=== PATIENT | female | born 1965 | race Caucasian/White ===

== ENCOUNTER 2016-06-17 05:34 | Day surgery (SDC) | payer OTHER ==
[~2016-06-17] VITALS: Ht 160 cm; Wt 85.3 kg
[2016-06-17] VITALS (15 sets, daily range): BP systolic 95–128; BP diastolic 50–80; PULSE 72–91; RESP 5–17; O2SAT 94–100
[~2016-06-17 05:34] MED LIST: BISA10EN RC; BUDE8.435 NS; CETI10CA PO; CHOL500011 PO; CLON2TAB PO; FIBERCON PO; GABA-502 PO; HYDR25TA4 PO; LIDO5O TP; Lactated Ringer's 1,000 ML IV SCH; MAGN400C PO; NICO2LOZ PO; NYST1POW23 MC; OMEP20CA11 PO; PRE20 PO; PROP20TA5 PO; QUET200T58 PO; RANI150C4 PO; ROPI1TAB3 PO; TOPI50TA32 PO
[2016-06-17] MEDS ORDERED: MetoCLOpramide 5 mg/mL 2 mL Inj ONE (05:35)
[2016-06-17] MEDS ORDERED: Ketamine 10 mg/mL 20 mL Inj ONE (05:35)
[2016-06-17] MEDS ORDERED: Dexamethasone 4 mg/mL Inj ONE (05:35)
[2016-06-17] MEDS ORDERED: Rocuronium 10 mg/mL 5 mL Inj ONE (05:35)
[2016-06-17] MEDS ORDERED: Propofol 10,000 mCg/mL 20 mL Inj ONE (05:35)
[2016-06-17] MEDS ORDERED: HYDROmorphone 2 mg/mL Inj ONE (05:35)
[2016-06-17] MEDS ORDERED: Ondansetron 2 mg/mL 2 mL Inj ONE (05:35)
[2016-06-17] MEDS ORDERED: Clindamycin Inj 900 MG in IV Premix 1 EACH IV SCH (06:00)
[2016-06-17] MEDS ORDERED: Lactated Ringer's 1,000 ML IV ONE (06:05)
--- NOTE | 2016-06-17 07:24 | PCM.HPANE ---
Patient Data Surgeon Admitting Provider: Attending Provider:Will Henson MD Primary Care Physician:Jarad Ann MD Other Provider:[facility] Reason for Visit Abdominal Pannus, Excess Abdominal Skin Ht/WT & BMI Height (Feet): 5 Height (Inches): 3.00 Weight (Kilograms): 85.275 Body Mass Index 33.00 Allergies Coded Allergies: Penicillins (Verified Allergy, Severe, Rash,Itching,, 06/16/16) TAPE (Verified Allergy, Severe, blisters, 06/16/16) ciprofloxacin (Verified Allergy, Unknown, UNKNOWN, 06/16/16) Past Anesthesia History Anesthesia History: Denies:: Abnormal Airway, Anesthesia Reactions, Difficult Intubation, Fam Anesthesia Reaction, Fam Malignant Hypertherm, Malignant Hyperthermia Diabetes History Hx Diabetes?: No Type of Diabetes: Type II Glycemic Control: Diet Controlled Current Bedside Blood Glucose: 93 MRSA MRSA: No Medications Home Meds Incl Beta Perla: No Reported Medications Topiramate (Topamax)50 Mg Mvluoj15 Mg PO BID Ref 0 06/16/16 Lidocaine HCl (Lidocaine)142 Appl/37.5 Gm Oint1 Appl TP Q8H PRN PRN 5% 06/16/16 Hydrochlorothiazide 25 Mg Vmklgl08 Mg PO DAILY 30 Days Ref 0 06/16/16 [Fibercon] No Conflict Bbdmy418 Mg PO BID 06/16/16 Budesonide 32 Mcg/Actuation [place].pump8.43 Ml NS EVERY 2 DAYS 06/16/16 Bisacodyl (Bisacodyl Rectal)10 Mg/30 Ml Enema10 Mg RC PRN PRN For Constipation 06/16/16 Cetirizine HCl (Zyrtec)10 Mg Gcqedzc36 Mg PO HS #30 CAPSULE Ref 0 11/20/15 Quetiapine Fumarate 200 Mg Dojqpt233 Mg PO HS Ref 0 07/03/15 Omeprazole 20 Mg Capsule.dr40 Mg PO HS Ref 0 07/03/15 Ranitidine 150 Mg Nmrqbor823 Mg PO BID Ref 0 07/03/15 Gabapentin 300 Mg Wyfubws216 Mg PO TID Ref 0 07/03/15 Clonazepam (Klonopin)2 Mg Tablet2 Mg PO HS PRN For Anxiety Ref 0 05/15/15 Ropinirole 1 Mg Tablet1 Mg PO HS Ref 0 05/14/15 Magnesium Oxide (Magnesium)400 Mg Lagxskz135 Mg PO HS 03/24/14 Discontinued Reported Medications Propranolol HCl 20 Mg Pfpjgh62 Mg PO TID 90 Days Ref 0 06/16/16 Prednisone (PredniSONE)20 Mg Bjciiq01 Mg PO DAILY Ref 0 TAPERING DOSES 06/16/16 Nystatin 1 Each Powder.ea.1 Each MC BID 06/16/16 Nicotine Polacrilex (Nicotine Lozenge)2 Mg Lozenge2 Mg PO Q2H PRN For Tobacco Withdrawal Ref 0 06/16/16 Cholecalciferol (Vitamin D3) (Vitamin D3)5,000 Unit Onajym272 Unit PO DAILY 07/23/14 Metformin 500 Mg Ffeucf006 Mg PO BID Ref 0 11/20/15 Cyclobenzaprine 10 Mg Cjacor70 Mg PO HS PRN For Pain 03/24/14 History History of ENT Problems?: Yes HEENT History: Positive for:: Dysphagia Hearing Problem Sinus Problem (SINUSITIS) Denies:: Abnormal Airway Cataracts Difficult Intubation Hx of Heart Problems?: Yes Cardiovascular History: Positive for:: Edema (Bilateral lower extremities) Denies:: AICD Atrial Fibrillation Cardiac Surgery Chest Pain Congestive Heart Failure Heart Murmur Hypertension (HYPERLIPIDEMIA) Pacemaker Valvular Heart Disease Hx of Respiratory Problem?: Yes Respiratory History: Positive for:: Asthma Dyspnea (MAK) Pneumonia (HX OF) Denies:: COPD Cough Hemoptysis Oxygen Administration Tuberculosis Use of C-PAP Machine Use of Inhalers / NEBS (NASAL SPRAYS FOR ALLERGIES) Hx Neurologic Problems?: Yes Neurological History: Positive for:: Headaches Denies:: Alzheimer's Disease CVA (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) Dementia Dizziness Seizures Other Neurological Pertinent: C/OF PARESTHESIAS HX OF CONCUSSION W/O LOC HX OF ENCEPHALOPATHY FOLLOWING OD'S Hx of GI Problems?: Yes Gastrointestinal History: Positive for:: Gall Bladder Disease (S/P KALPANA) Gastroesphageal Reflux Heartburn Denies:: Cirrhosis Diverticulitis Gastrointestinal Bleeding Hepatitis Hiatal Hernia Rectal Bleeding Other GI Pertinent History: S/P DELVIN-N-Y GASTRIC BYPASS (180# WEIGHT LOSS OVER SEVERAL YEARS) ABD PANNUS,EXCESS ABD SKIN=CURRENT PROBLEM Hx of Problems?: No Genitourinary History: Denies:: Kidney Stones Female Hx: Denies:: Currently Endometriosis Pelvic Inflammatory Problems with Breasts? Skin History: Positive for:: History Skin Disorders? (RASHES, SKIN IRRITATION UNDER PANNUS) Denies:: Pressure Ulcers Hx Musculoskeletal Problems?: Yes Musculoskeletal History: Positive for:: Musculoskeletal Trauma (C/OF RT KNEE PAIN) Denies:: Back Injury (C/OF CHRONIC BACK PAIN) Joint Replacement Hx of Psycho/Social Problems?: Yes Psycho Social History: Positive for:: Anxiety Bipolar Disorder Hx Depression Suicide Attempt (MULT OD'S/SUICIDE ATTEMPTS (REQ INTUBATION 2013,2016)) Hx Surgeries?: Yes (DELVIN-N-Y GASTRIC BYPASS,KALPANA,HYST,BTL) Hx Any Other Health Problems?: Yes Other History: Positive for:: Cancer (Cervical Cancer) Endocrine Disease Hospitalization (OD) Thyroid Disease History Blood Transfusions: Denies:: Blood Transfuse Reaction Blood Transfusions Hx Diabetes: NoBedside Blood Glucose: 93 Hx Alcohol Use: YesAlcoholic Drinks Per Day: ADMITS TO 1/2 WEEK; HX OF BINGE DRINKINGHx Substance Use: Yes (THC) Smoking Status: Current Every Day Smoker Have You Smoked inLast 12 mo: Yes (USING E-CIG & NICOTINE LOZENGES) Stop/Bang Treated for Sleep Apnea?: No Do You Have a CPAP Machine?: No S-Snoring: Do You Snore Loudly: No T-Tired: feel tired, fatigued: Yes O-Obsered: Observed not breath: No P-Blood Pressure: treated: Yes B- Body Mass Index > 35 kg/m2: No A- Age over 50: Yes N- Neck Large Circumference: No G- Gender Male: No ELLIE Total Score: 3 ELLIE Risk Assessment: Low Risk, <3 Yes Risk Assessment Category Category 1A: Patient has history of documented sleep apnea, and HAS NOT received any narcotic, sedative or anesthesia administration during this stay. Category 1B: Patient has history of documented sleep apnea, and HAS received any narcotic , sedative or anesthesia administration during this stay Category 2: Patient has SUSPECTED Obstructive Sleep Apnea, and HAS received any narcotic , sedative or anesthesia administration during this stay. Category 3: Patient has SUSPECTED Obstructive Sleep Apnea and HAS NOT received narcotic, sedative or anesthesia administration during this stay. Category 4: Outpatient in Procedural Areas with known sleep apnea or who screen positive for High Risk via the STOP/BANG questionnaire. Exam Exam Vital Signs Vital Signs Date Time Temp Pulse Resp B/P Pulse Ox O2 Delivery O2 Flow Rate FiO2 4// 06:06 36.3 74 17 109/68 97 Room Air General Appearance: Oriented X3 HEENT/AIRWAY: MP 2 Lungs: Normal Air Movement Heart: Regular Rate/Rhythm Meds/Labs/Diagnostics Admission Meds Current Medications Lactated Ringer's (Lr) 1,000 ml @ ud STK-MED ONCE IV Last administered on t 06:05; Start 06/17/16 at 06:05; Stop 06/17/16 at 06:06; Status DC Bedside Blood Glucose: 93 Plan Impression Patient chart reviewed, patient interviewed and anesthestic plan with risks, benefits, and alternatives discussed, and informed consent obtained. NPO Status: 06/16@1999, WATER @ 0330 ASA Physical Status: ASA2 Mod Systemic Disease Anesthetic Plan: GA Bene/Risks/Altern/Consents: Yes HP Complete Prior to Induction: Yes Jason Good MD Jun 17, 2016 07:24
[2016-06-17] MEDS ORDERED: Lactated Ringer's 1,000 ML IV SCH (07:56)
[2016-06-17] MEDS ORDERED: Lactated Ringer's 500 ML IV PRN (07:56)
[2016-06-17] MEDS ORDERED: fentaNYL-PF 50 mCg/mL 2 mL Inj IVPUSH PRN (08:00)
[2016-06-17] MEDS ORDERED: Phenylephrine 10,000 mCg/mL Inj IVPUSH PRN (08:00)
[2016-06-17] MEDS ORDERED: EPHEDrine Sulfate 50 mg/mL Inj IVPUSH PRN (08:00)
[2016-06-17] MEDS ORDERED: MetoCLOpramide 5 mg/mL 2 mL Inj IVPUSH PRN (08:00)
[2016-06-17] MEDS ORDERED: Labetalol 5 mg/mL 4 mL Inj IV PRN (08:00)
[2016-06-17] MEDS ORDERED: Ondansetron 2 mg/mL 2 mL Inj IVPUSH PRN (08:00)
[2016-06-17] MEDS ORDERED: HYDROmorphone 1 mg/mL Inj IVPUSH PRN (08:00)
[2016-06-17] MEDS ORDERED: Dexamethasone 4 mg/mL Inj IVPUSH PRN (08:00)
[2016-06-17] MEDS: oxyCODONE-Acetamin 5-325 mg Tablet PO PRN ×2 (12:00→12:35)
--- NOTE | 2016-06-17 12:31 | PCM.ANEP1 ---
Post Anesthesia Phase 1 PACU Phase 1 Assessment Vital Signs Vital Signs Date Time Temp Pulse Resp B/P Pulse Ox O2 Delivery O2 Flow Rate FiO2 06/17/16 11:45 36.1 91 13 119/71 100 Nasal Cannula 3 06/17/16 11:32 82 12 108/62 99 Nasal Cannula 3 06/17/16 11:28 87 9 110/77 97 Nasal Cannula 3 06/17/16 11:22 85 5 128/78 94 Room Air 06/17/16 11:19 86 14 116/80 100 Simple Mask 10 06/17/16 11:10 72 5 101/70 100 Simple Mask 10 06/17/16 11:04 77 5 103/69 100 Simple Mask 10 06/17/16 11:01 78 5 102/69 100 Simple Mask 10 06/17/16 10:54 77 5 107/65 99 Simple Mask 10 06/17/16 10:50 79 5 98/64 99 Simple Mask 10 06/17/16 10:45 80 5 98/59 99 Simple Mask 10 06/17/16 10:41 36.2 77 5 95/50 99 Simple Mask 10 06/17/16 06:06 36.3 74 17 109/68 97 Room Air Anesthetic Administered: GA Level of Alertness: Awake, talking Pain: No Nausea or Vomiting: No Airway Device: Oralpharangeal Airway Lungs: Normal Air Movement Jason Good MD Jun 17, 2016 12:31
--- NOTE | 2016-06-17 12:31 | PCM.ANEP2 ---
Post Anesthesia Evaluation ASA/CMS Post Anesthesia VS in Patient's Normal Range?: Yes Resp Stable; Airway Patent?: Yes CV Function & Hydration Stable: Yes Mental Status Recovered?: Yes Pain control Satisfactory?: Yes N/V Control Satisfactory?: Yes Jason Good MD Jun 17, 2016 12:31
--- NOTE | 2016-06-19 14:20 | OP ---
[address] [address] OPERATIVE REPORT PATIENT: SAMSON PANIAGUA : 1965 MR#: [id number] ADMIT: 06/17/2016 JOB ID: [id number] DATE OF SURGERY: 06/17/2016 PREOPERATIVE DIAGNOSIS(ES): 1. Abdominal pannus. 2. Excess abdominal skin. POSTOPERATIVE DIAGNOSIS(ES): 1. Abdominal pannus. 2. Excess abdominal skin. PROCEDURE: 1. Abdominal panniculectomy. 2. Excision of excess abdominal skin using a vertical [id number]-[id number] method. SURGEON: Will Henson MD. CERTIFIED MASSAGE THERAPIST: LANDON, Reyes Salcedo, was present for necessary retraction, exposure, and closure of the incisions. ANESTHESIA: General anesthesia. ESTIMATED BLOOD LOSS: 40 cc. COMPLICATIONS: None apparent. SPECIMEN: Abdominal pannus and excess abdominal tissue to Pathology. INDICATIONS FOR PROCEDURE: This is a 51-year-old, female patient with a history of massive weight loss. The patient has a resultant abdominal pannus that is quite symptomatic with an intertriginous rash and skin breakdown. Patient has been approved for panniculectomy. The patient also would like to have her excess periumbilical and supraumbilical excess skin removed. Patient has to pay for this out of pocket at this point, but two procedures are indicated. PROCEDURES AND FINDINGS: The patient was identified in the preoperative area and surgical site was marked. With the patient in a standing position, I marked the superior and inferior border of her undergarment. Patient's midline was also marked. The patient was then taken back to the operating room and placed supine on the operating table. Appropriate time-outs were taken. General anesthesia was induced smoothly. With the patient supine I marked on the patient's abdomen several grid lines 5 cm apart to better assess the amount of skin excised. A low transverse abdominal incision was also designed to have the incision lie underneath patient's undergarment superior borders. The patient was then prepped and draped in the usual sterile manner. A low transverse abdominal incision was then made with a #10 blade. I then deepened the incision down through the subcutaneous tissue, down to the underlying abdominal fascia. I then elevated the skin flap off of the rectus fascia to the level of the umbilicus. At this point, incision was carried around the umbilicus. The umbilical stalk was then dissected down to the abdominal fascia with approximately 1-2 cm of fatty tissue surrounding the stalk. Once this has been done, I made the vertical incision from just superior to the xiphoid all the way down through the flap. The vertical incision was then carried down to the abdominal fascia in the supraumbilical region. At this point, excess horizontal abdominal skin was estimated with the pinch test. Care was taken to remove similar amount on each side. The excess skin was marked from the superior end of the vertical incision down to the level of the umbilicus. At the level of the umbilicus approximately 30 cm of excess skin was marked for removal. Incision was then made along the bryan. Incision was then made with a #10 blade and carried down to the underlying abdominal fascia with electrocautery. The excess supraumbilical abdominal tissue was then elevated off the abdominal fascia. This was then trimmed and passed off to Pathology as a specimen. At this point, the vertical incision was then temporarily reapproximated with skin mane down to the level of the umbilicus. Once this has been done, the skin flap was retracted medially and inferiorly. Excess abdominal skin in the vertical dimension was then marked. Once the bryan has been made incision was made with a #10 blade down through the skin and through the skin flap by allowing the excess abdominal tissue and pannus to be removed from the vertical dimension. Once this has been done, mane were temporarily removed. Hemostasis was obtained with electrocautery. I then plicated rectus back to the midline using a looped 0 PDS suture reapproximating the rectus fascia at the edge of the rectus abdominis muscle from the xiphoid down to the umbilicus. Another suture was then used to plicate the rectus fascia from the pubic symphysis up to the umbilicus. A vertical drain and then transverse drain were then placed into the surgical site. The vertical drain exited through a separate inferior stab incision in the pubis. Transverse drain exited through a separate lateral stab incision on the right side. The drains were secured with 3-0 nylon drain stitches. The incisions were then reapproximated first with a layer of 3-0 Vicryl dsdoly-[id number] sutures reapproximating Deana's fascia. A layer of 3-0 Monocryl deep dermal sutures was then placed. At the level of the umbilicus, the umbilicus was inset using 4-0 Monocryl deep dermal sutures. A layer of 4-0 Monocryl running subcuticular sutures were then placed for final epidermal reapproximation. The patient tolerated the procedure well. Needle count, sponge count, instrument counts were correct at the end of the procedure. The patient was extubated and transported to recovery in a stable condition.
--- NOTE | 2016-06-22 13:06 | PATH ---
SURGICAL PATHOLOGY Attending Physician:Will Henson CASE STATUS: Signed Out PATIENT NAME: SAMSON PANIAGUA PID: [id number] : 1965 DATE COLLECTED:06/17/2016 22:58 SPECIMEN: 1: Skin, biopsy 2: Skin, biopsy CLINICAL HISTORY: EXCESS ABDOMINAL TISSUE, ABDOMINAL PANNIS 1). EXCESS ABDOMINAL TISSUE 2). MORE, ABDOMINAL TISSUE FINAL DIAGNOSIS: 1. Excess Abdominal Tissue: Skin and adipose tissue (1246 grams) consistent with abdominal pannus. 2. More Abdominal Tissue: Adipose tissue (1456.6 grams) consistent with abdominal pannus. ICD10 E65 GROSS DESCRIPTION: The specimens are received in formalin, labeled with the patient's name, and sublabeled as the following: (1) excess abdominal skin; (2) more-excess abdominal tissue. (1) The specimen consists of multiple pieces of adipose tissue with overlying skin (1246 g, 26.2 x 25.5 x 3.8 cm). The adipose tissue is sung-yellow lobular and homogenous. The skin is pale white and unremarkable. Section code: (1A, 1B) tissue, termite control representative. (2) The specimen consists of multiple pieces of adipose tissue with overlying skin (1456 6 g, 28.8 x 26.7 x 5.2 cm). The adipose tissue is sung-yellow lobular and homogenous. The skin is pale white and unremarkable. Section code: (2A, 2B) tissue, termite control representative. 06/18/16 ICD-9 CODES: CPT CODES: 1: 60913 2: 28884 Electronically Signed Out Jarred Cohen MD [facility] [address], [place] [address] Technical component performed at [facility], [facility] [address], [place], [address]
== END 2016-06-17 23:59 | disposition home or self-care (01) ==
LOC: SAS 05:34
PROVIDERS: ATTEND Plastic Surgery
DX: E65 Localized adiposity (principal); L98.7 Excessive and redundant skin and subcutaneous tissue; Z98.84 Bariatric surgery status; E11.9 Type 2 diabetes mellitus without complications; F31.9 Bipolar disorder, unspecified; Z72.0 Tobacco use

== ENCOUNTER 2016-11-25 19:38 | Emergency (ER) | payer OTHER ==
[~2016-11-25] VITALS: Ht 161.3 cm; Wt 81.8 kg
[~2016-11-25 19:38] MED LIST changes: -Clindamycin 900 mg/50 mL D5W Premix IV ONE; -Dexamethasone 4 mg/mL Inj IVPUSH PRN; -Dexamethasone 4 mg/mL Inj ONE; -EPHEDrine Sulfate 50 mg/mL Inj IVPUSH PRN; -HYDROmorphone 1 mg/mL Inj IVPUSH PRN; -Lactated Ringer's 1,000 ML IV SCH; -Lactated Ringer's 500 ML IV PRN; -MetoCLOpramide 5 mg/mL 2 mL Inj IVPUSH PRN; -Ondansetron 2 mg/mL 2 mL Inj IVPUSH PRN; -Ondansetron 2 mg/mL 2 mL Inj ONE; -Phenylephrine 10,000 mCg/mL Inj IVPUSH PRN; -Propofol 10,000 mCg/mL 20 mL Inj ONE; -Succinylcholine Chloride 20 mg/mL 5 mL Inj ONE; -fentaNYL-PF 50 mCg/mL 2 mL Inj IVPUSH PRN; -fentaNYL-PF 50 mCg/mL 2 mL Inj ONE; -oxyCODONE-Acetamin 5-325 mg Tablet PO PRN
[2016-11-25 20:00] VITALS: BP 125/72; PULSE 92; RESP 16; O2SAT 96
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
[2016-11-25 20:50] VITALS: BP 122/78; PULSE 80; O2SAT 94
== END 2016-11-25 20:51 | disposition home or self-care (01) ==
LOC: EDBD 19:38 → SED 19:38 → EDUNIT# 19:38 → SED 20:51
DX: Z04.3 Encounter for examination and observation following other accident (principal); R10.9 Unspecified abdominal pain; V53.6XXA Passenger in pick-up truck or van injured in collision with car, pick-up truck or van in traffic accident, initial encounter; Y93.89 Activity, other specified; Y92.410 Unspecified street and highway as the place of occurrence of the external cause; Y99.8 Other external cause status; K21.9 Gastro-esophageal reflux disease without esophagitis; I10 Essential (primary) hypertension; F17.200 Nicotine dependence, unspecified, uncomplicated; E11.9 Type 2 diabetes mellitus without complications; Z90.710 Acquired absence of both cervix and uterus; Z88.0 Allergy status to penicillin; Z88.1 Allergy status to other antibiotic agents

== ENCOUNTER → 2016-11-25 | Day surgery (SDC) | payer OTHER ==
[2016-11-25] VITALS (8 sets, daily range): BP systolic 106–128; BP diastolic 76–86; PULSE 69–83; RESP 13–19; O2SAT 95–100
[~2016-11-25] VITALS: Ht 160 cm; Wt 81.7 kg
[~2016-11-25] MED LIST changes: -CHOL500011 PO; +Clindamycin 900 mg/50 mL D5W Premix IV ONE; +Dexamethasone 4 mg/mL Inj IVPUSH PRN; +Dexamethasone 4 mg/mL Inj ONE; +EPHEDrine Sulfate 50 mg/mL Inj IVPUSH PRN; +HYDR-3740 PO; +HYDROmorphone 1 mg/mL Inj IVPUSH PRN; +Lactated Ringer's 500 ML IV PRN; +MetoCLOpramide 5 mg/mL 2 mL Inj IVPUSH PRN; -NICO2LOZ PO; -NYST1POW23 MC; +Ondansetron 2 mg/mL 2 mL Inj IVPUSH PRN; +Ondansetron 2 mg/mL 2 mL Inj ONE; -PRE20 PO; -PROP20TA5 PO; +Phenylephrine 10,000 mCg/mL Inj IVPUSH PRN; +Propofol 10,000 mCg/mL 20 mL Inj ONE; +Succinylcholine Chloride 20 mg/mL 5 mL Inj ONE; +fentaNYL-PF 50 mCg/mL 2 mL Inj IVPUSH PRN; +fentaNYL-PF 50 mCg/mL 2 mL Inj ONE; +oxyCODONE-Acetamin 5-325 mg Tablet PO PRN
[2016-11-25] MEDS: Lactated Ringer's 1,000 ML IV SCH ×2 (11:47→14:41)
[2016-11-25] MEDS: Clindamycin 900 mg/50 mL D5W IV ONE ×2 (14:48→14:54)
--- NOTE | 2016-11-25 15:30 | PCM.HPANE ---
Patient Data Date of Service: Nov 25, 2016 Surgeon Admitting Provider: Attending Provider:Will Henson MD Primary Care Physician:Jarad Ann MD Other Provider:[facility] Anesthesia Reason for Visit Post-Op Deformities Ht/WT & BMI Height (Feet): 5 Height (Inches): 3 Weight (Kilograms): 81.7 Body Mass Index 31.00 Allergies Coded Allergies: Penicillins (Verified Allergy, Severe, Rash,Itching,, 06/16/16) TAPE (Verified Allergy, Severe, blisters, 06/16/16) ciprofloxacin (Verified Allergy, Unknown, UNKNOWN, 06/16/16) Past Anesthesia History Anesthesia History: Denies:: Abnormal Airway, Anesthesia Reactions (nausea), Difficult Intubation, Fam Anesthesia Reaction, Fam Malignant Hypertherm, Malignant Hyperthermia Diabetes History Hx Diabetes?: No Type of Diabetes: Type II Glycemic Control: Diet Controlled MRSA MRSA: No Medications Hypertension Medication: No Home Meds Incl Beta Perla: No Reported Medications Hydrocodone-Acetaminophen 10-325 mg 1 Each Tablet1 Tablet PO Q6H PRN For Pain Ref 0 11/18/16 Topiramate (Topamax)50 Mg Lwxzfh37 Mg PO BID Ref 0 06/16/16 Lidocaine HCl (Lidocaine)142 Appl/37.5 Gm Oint1 Appl TP Q8H PRN PRN 5% 06/16/16 Hydrochlorothiazide 25 Mg Ijahvf00 Mg PO DAILY 30 Days Ref 0 06/16/16 [Fibercon] No Conflict Trmfj720 Mg PO BID 06/16/16 Budesonide 32 Mcg/Actuation [place].pump8.43 Ml NS EVERY 2 DAYS 06/16/16 Bisacodyl (Bisacodyl Rectal)10 Mg/30 Ml Enema10 Mg RC PRN PRN For Constipation 06/16/16 Cetirizine HCl (Zyrtec)10 Mg Ccfdyen86 Mg PO HS #30 CAPSULE Ref 0 11/20/15 Quetiapine Fumarate 200 Mg Wakgvu660 Mg PO HS Ref 0 07/03/15 Omeprazole 20 Mg Capsule.dr40 Mg PO HS Ref 0 07/03/15 Ranitidine 150 Mg Sfbkohc671 Mg PO BID Ref 0 07/03/15 Gabapentin 300 Mg Somzmny979 Mg PO TID Ref 0 07/03/15 Clonazepam (Klonopin)2 Mg Tablet2 Mg PO HS PRN For Anxiety Ref 0 05/15/15 Ropinirole 1 Mg Tablet1 Mg PO HS Ref 0 05/14/15 Magnesium Oxide (Magnesium)400 Mg Azaaeyw739 Mg PO HS 03/24/14 History History of ENT Problems?: Yes HEENT History: Positive for:: Dysphagia Hearing Problem Sinus Problem (SINUSITIS) Denies:: Abnormal Airway Cataracts Difficult Intubation Glaucoma Denture Type: Full- Upper Full- Lower Teeth Condition: No Teeth Hx of Heart Problems?: Yes Cardiovascular History: Positive for:: Edema (Bilateral lower extremities) Denies:: AICD Atrial Fibrillation Cardiac Surgery Chest Pain Congestive Heart Failure Heart Murmur Hypertension Pacemaker Valvular Heart Disease Hx of Respiratory Problem?: No Respiratory History: Positive for:: Dyspnea (MAK) Denies:: Asthma COPD Cough Hemoptysis Oxygen Administration Pneumonia (prior hx of) Tuberculosis Use of C-PAP Machine (recommended - no sleep study done yet) Use of Inhalers / NEBS Hx Neurologic Problems?: Yes Neurological History: Positive for:: Headaches (chronic migraines, ) Denies:: Alzheimer's Disease CVA Dementia Dizziness Multiple Sclerosis Parkinson's Disease Seizures Hx of GI Problems?: Yes Hx of Problems?: No Genitourinary History: Denies:: Kidney Stones Urinary Tract Infection (hx of recurrent infections recent- none current ) Female Hx: Denies:: Currently (hysterectomy) Problems with Breasts? Skin History: Denies:: History Skin Disorders? Pressure Ulcers Hx Musculoskeletal Problems?: No Musculoskeletal History: Denies:: Back Injury (cervical stenosis, chronic back pain) Fibromyalgia Joint Replacement Musculoskeletal Trauma Myasthenia Gravis Osteoarthritis Hx of Psycho/Social Problems?: Yes Psycho Social History: Positive for:: Anxiety Hx Depression Suicide Attempt (MULT OD'S/SUICIDE ATTEMPTS (REQ INTUBATION 2013,2015)) Hx Surgeries?: Yes (DELVIN-N-Y GASTRIC BYPASS,KALPANA,HYST,BTL, abdominoplasty) Hx Any Other Health Problems?: Yes Other History: Positive for:: Cancer (Cervical Cancer) Endocrine Disease Hospitalization (OD) Thyroid Disease History Blood Transfusions: Positive for:: Accept Blood Products? Denies:: Blood Transfuse Reaction Blood Transfusions Hx Diabetes: No Hx Alcohol Use: YesAlcoholic Drinks Per Day: 1 x monthlyHx Substance Use: No Smoking Status: Current Every Day Smoker Have You Smoked inLast 12 mo: Yes (USING E-CIG & NICOTINE LOZENGES) Stop/Bang Treated for Sleep Apnea?: No Do You Have a CPAP Machine?: No P-Blood Pressure: treated: Yes B- Body Mass Index > 35 kg/m2: No A- Age over 50: Yes N- Neck Large Circumference: No G- Gender Male: No ELLIE Risk Assessment: Low Risk, <3 Yes Risk Assessment Category Category 1A: Patient has history of documented sleep apnea, and HAS NOT received any narcotic, sedative or anesthesia administration during this stay. Category 1B: Patient has history of documented sleep apnea, and HAS received any narcotic , sedative or anesthesia administration during this stay Category 2: Patient has SUSPECTED Obstructive Sleep Apnea, and HAS received any narcotic , sedative or anesthesia administration during this stay. Category 3: Patient has SUSPECTED Obstructive Sleep Apnea and HAS NOT received narcotic, sedative or anesthesia administration during this stay. Category 4: Outpatient in Procedural Areas with known sleep apnea or who screen positive for High Risk via the STOP/BANG questionnaire. Exam Exam Vital Signs Vital Signs Date Time Temp Pulse Resp B/P Pulse Ox O2 Delivery O2 Flow Rate FiO2 11/25/16 11:37 36.1 83 16 106/76 96 Room Air General Appearance: Alert, Oriented X3, Cooperative HEENT/AIRWAY: MP 1 Lungs: Clear to Auscultation Heart: Exam Unremarkable Meds/Labs/Diagnostics Admission Meds Current Medications Clindamycin Phosphate/ Dextrose 900 mg/ Premix 50 ml @ 100 mls/hr PREOP ONCE IV Last administered on 11/25/16 14:54; Start 11/25/16 at 06:00; Stop at 06:29; Status DC Lactated Ringer's (Lr) 1,000 ml @ 120 mls/hr Q8H20M IV Last administered on 14:41; Start 11/25/16 at 05:00; Stop 11/25/16 at 13:19; Status DC Plan Impression Patient chart reviewed, patient interviewed and anesthestic plan with risks, benefits, and alternatives discussed, and informed consent obtained. NPO per Anesth. Guidelines: Yes ASA Physical Status: ASA2 Mod Systemic Disease Anesthetic Plan: GA Bene/Risks/Altern/Consents: Yes HP Complete Prior to Induction: Yes Daniel Linares MD Nov 25, 2016 15:30
--- NOTE | 2016-11-25 16:41 | PCM.ANEP1 ---
Post Anesthesia PACU Phase 1 Assessment Vital Signs Vital Signs Date Time Temp Pulse Resp B/P Pulse Ox O2 Delivery O2 Flow Rate FiO2 11/25/16 16:20 37.0 82 19 116/77 100 Nasal Cannula 3 11/25/16 11:37 36.1 83 16 106/76 96 Room Air Anesthetic Administered: GA Level of Alertness: Sleepy, easy to arouse Pain: Yes Pain Scale Score: 5 Nausea or Vomiting: No CV Function & Hydration Stable: Yes Airway Device: Oxygen Delivery: Nasal Cannula Lungs: Clear to Auscultation PACU Phase 2 Assessment Patient Instructions Provided: N/A Daniel Linares MD Nov 25, 2016 16:41
--- NOTE | 2016-11-30 11:36 | OP ---
[address] [address] OPERATIVE REPORT PATIENT: SAMSON PANIAGUA : 1965 MR#: [id number] ADMIT: 11/25/2016 JOB ID: [id number] DATE OF SURGERY: 11/25/2016 PREOPERATIVE DIAGNOSIS(ES): 1. Epigastric postoperative deformity. 2. Bilateral low abdomen paramedian postoperative deformity. POSTOPERATIVE DIAGNOSIS(ES): 1. Epigastric postoperative deformity. 2. Bilateral low abdomen paramedian postoperative deformity. PROCEDURE: 1. Excision of epigastric postoperative deformity 5 cm in diameter. 2. Layered closure of epigastric defect total length of layered closure 20 cm. 3. Excision of bilateral lower abdomen, groin standing cutaneous deformity. 4. Total length of layered closure 25 cm. SURGEON: Will Henson MD ACETYLENE CUTTER: Felix Murillo PA-C for necessary retraction, exposure, and closure. ANESTHESIA: General anesthesia. ESTIMATED BLOOD LOSS: 30 cc. COMPLICATIONS: None apparent. SPECIMEN: None. DRAINS: A #10 round Irving drain x2, one for the epigastric area and one for the low transverse abdominal area. INDICATIONS FOR PROCEDURE: This is a 51-year-old female patient with a history of significant weight loss with abdominal pannus and excess abdominal skin. The patient underwent a titus de lis vertical type of excision of excess abdominal skin and panniculectomy. Patient has some residual deformity in the epigastric area as well as along the low-transverse incision in the groin area. These are easily irritated and slightly tender. At this point, excision of these deformities are indicated. PROCEDURE AND FINDINGS: The patient was identified in the preoperative area. Surgical site was marked. With patient in sitting position, I marked the deformity in the epigastric area as well as in the bilateral groin area. The patient was then taken back to the operating room and placed supine on the operating table. Appropriate time-outs were taken. Present anesthesia was induced smoothly. With patient in supine position, I remarked the ellipse that encompassed the bilateral paramedian deformity and connected them in the middle to turn it into one large ellipse which will remove some of the excess mons tissue as well. The patient was then prepped and draped in the usual sterile manner. I first turned my attention to the epigastric area. Incision was made around the marked area of excess skin and deformity. This was extending to the ellipse that extended to the patient's mid to chest area. It also extended inferiorly to around the umbilicus. Incision was made with a #10 blade. I then incised the deformity with a moderate amount of underlying subcutaneous tissue with electrocautery. Once this had been done, a #10 round Irving drain was placed in the surgical site. It was then routed in the subcutaneous tissue to the lower abdominal surgical site and held in place. Once this has been done, a layer of 3-0 Vicryl [id number] sutures were then used to close the deep subcutaneous tissue. A layer of 3-0 Monocryl deep dermal sutures were then placed, followed by 4-0 Monocryl running subcuticular suture. I then turned my attention to the lower abdominal area. Incision was made around the previously made bryan that delineated the deformities. This was done with a #10 blade. Incision was then deepened down to the mid the subcutaneous level. The ellipse was then removed with a moderate amount of subcutaneous tissue on its underside. Once this has been done a #15 round Irving drain was then placed transversely across the surgical site. The vertical drain that was placed in the epigastric area was then also tunnel into the lower abdominal surgical site. The epigastrium was placed such that it exited through a separate stab incision in the midline. The low transverse abdominal drain exited through a separate stab incision on the left end of the incision. Once this had been done, the soft tissue was reapproximated using 3-0 Vicryl [id number] sutures. A layer of 3-0 Monocryl deep dermal sutures were then placed, followed by 4-0 Monocryl running subcuticular suture. The patient tolerated the procedure well. Needle count, sponge count, and instrument counts were correct at the end of the procedure. The patient was extubated and transported to recovery in stable condition.
== END | disposition home or self-care (01) ==
LOC: SAS 11:15
PROVIDERS: ATTEND Plastic Surgery
DX: M95.8 Other specified acquired deformities of musculoskeletal system (principal); R13.10 Dysphagia, unspecified; R60.9 Edema, unspecified; G43.909 Migraine, unspecified, not intractable, without status migrainosus; F41.9 Anxiety disorder, unspecified; F17.210 Nicotine dependence, cigarettes, uncomplicated; Z79.899 Other long term (current) drug therapy
CPT/HCPCS: 11402; 11403; 12036; J0330; J1100; J2250; J2405; J2704; J3010; J3490; J7120